=== PATIENT | female | born 1960 | race Caucasian/White ===

== ENCOUNTER 2020-11-02 11:06 | Emergency (ER) | payer OTHER, SELFPAY ==
[~2020-11-02] VITALS: Ht 165.1 cm; Wt 85.7 kg
[2020-11-02 11:43] VITALS: BP 142/82
--- NOTE | 2020-11-02 12:10 | NUR ---
60 Y/O FEMALE IS COVID +, EXPERIENCING SOB/WHEEZING AND FEVER X3 DAYS. NO RESPIRATORY DISTRESS NOTED AT THIS TIME. VSS PMH: HIV+ NKDA
[2020-11-02 16:13] LABS: BASOPHILS % (AUTO) 0.3 % (0.0-2.0); EOSINOPHILS % (AUTO) 0.1 % (0.0-4.0); HEMATOCRIT 36.7 % (36-48); HEMOGLOBIN 12.2 g/dL (12.0-16.0); MEAN CORPUSCULAR HEMOGLOBIN 28 pg (27-31); MEAN CORPUSCULAR HGB CONC 33 g/dL (33-37); MEAN CORPUSCULAR VOLUME 85.5 fL (80-94); MONOCYTES # (AUTO) 0.8 K/uL (0.8-1.0); MONOCYTES % (AUTO) 9.1 % (1.7-9.3); NEUTROPHILS # (AUTO) 5.6 K/uL (1.8-7.7); NEUTROPHILS % (AUTO) 66.5 % (42.2-75.2); PLATELET COUNT (AUTO) 268 K/uL (140-450); RED CELL DISTRIBUTION WIDTH 15.5 % (11.6-13.7); WHITE BLOOD COUNT (AUTO) 8.5 K/uL (4.8-10.8)
[2020-11-02 16:28] LABS: ALBUMIN 3.1 g/dL (3.4-5.0); ANION GAP 16.3 (8-16); CARBON DIOXIDE 24.7 mmol/L (21-32); CREATININE 0.9 mg/dL (0.6-1.3); TOTAL BILIRUBIN 0.3 mg/dL (0.0-1.0)
[2020-11-02 17:44] VITALS: BP 142/82
--- NOTE | 2020-11-02 17:44 | NUR ---
Patient discharged with v/s stable. Written and verbal after care instructions given and explained. Patient alert, oriented and verbalized understanding of instructions. Ambulatory with steady gait. All questions addressed prior to discharge. ID band removed. Patient advised to follow up with PMD. Rx of BACTRIM, NAPROSYN, PROMETHAZINE given. Patient educated on indication of medication including possible reaction and side effects. Opportunity to ask questions provided and answered.
== END 2020-11-02 17:44 | disposition home or self-care (01) ==
LOC: MED 11:06
DX: U07.1 COVID-19 (principal); R06.02 Shortness of breath
CPT/HCPCS: 36415; 71045; 80053; 84484; 85025; 93005; 99285

== ENCOUNTER 2023-12-18 18:25 | Emergency (ER) | payer OTHER ==
[~2023-12-18] VITALS: Ht 160 cm; Wt 72.6 kg
[2023-12-18 18:35] VITALS: BP 161/85; PULSE 80; RESP 18; TEMP 98.1; O2SAT 97
[2023-12-18] MEDS ORDERED: METH4TAB1 PO (20:10)
[2023-12-18] MEDS ORDERED: PROM118S5 PO (20:10)
== END 2023-12-18 20:21 | disposition home or self-care (01) ==
LOC: MED 18:25
DX: J20.9 Acute bronchitis, unspecified (principal); Z79.899 Other long term (current) drug therapy
CPT/HCPCS: 71045; 99283